=== PATIENT | female | born 1975 | race Caucasian/White ===

== ENCOUNTER 2017-10-24 03:53 | Emergency (ER) | payer MEDICAID, OTHER ==
[~2017-10-24] VITALS: Ht 152.4 cm; Wt 73.7 kg
[2017-10-24 04:07] VITALS: BP 106/69; PULSE 89; RESP 16; TEMP 97.9
[2017-10-24 04:08] VITALS: Ht 152.4 cm; Wt 73.7 kg
[2017-10-24 05:52] LABS: URINE BLOOD (Dip) POC 3+ (NEGATIVE)
[2017-10-24] MEDS: ACETAMINOPHEN 325 MG TAB PO STA ×2 (06:33→06:35)
[2017-10-24 06:58] LABS: BASOPHIL # 0.1 10^3/ul (0.0-0.1); BASOPHILS % 0.5 % (0.0-2.0); EOSINOPHILS # 0.1 10^3/ul (0.0-0.5); EOSINOPHILS % 1.4 % (0.0-7.0); HEMATOCRIT 35.1 % (37.0-47.0); HEMOGLOBIN 11.8 g/dl (12.0-16.0); LYMPHOCYTES # 1.7 10^3/ul (0.8-2.9); LYMPHOCYTES % 16.7 % (15.0-51.0); MEAN CORPUSCULAR HEMOGLOBIN 28.7 pg (29.0-33.0); MEAN CORPUSCULAR HGB CONC 33.6 g/dl (32.0-37.0); MEAN CORPUSCULAR VOLUME 85.4 fl (82.0-101.0); MEAN PLATELET VOLUME 9.9 fl (7.4-10.4); MONOCYTE # 0.7 10^3/ul (0.3-0.9); NEUTROPHIL # 7.7 10^3/ul (1.6-7.5); NEUTROPHILS % 74.1 % (39.0-77.0); PLATELET COUNT 260 10^3/UL (140-415); RED BLOOD COUNT 4.11 10^6/ul (4.20-5.40); RED CELL DISTRIBUTION WIDTH 13.2 % (11.5-14.5); WHITE BLOOD COUNT 10.3 10^3/ul (4.8-10.8)
[2017-10-24 07:09] LABS: ADD UMIC YES; UR ASCORBIC ACID NEGATIVE (NEGATIVE); UR BILIRUBIN (Dip) NEGATIVE (NEGATIVE); UR BLOOD (Dip) 3+ mg/dL (NEGATIVE); UR CLARITY CLOUDY (CLEAR); UR COLOR RED (YELLOW); UR GLUCOSE (Dip) 3+ mg/dL (NEGATIVE); UR KETONES (Dip) 1+ mg/dL (NEGATIVE); UR LEUKOCYTE ESTERASE (Dip) NEGATIVE Leu/ul (NEGATIVE); UR NITRITE (Dip) NEGATIVE (NEGATIVE); UR RBC > 182 /HPF (0-5); UR SPECIFIC GRAVITY (Dip) 1.033 (1.003-1.030); UR TOTAL PROTEIN (Dip) 2+ mg/dl (NEGATIVE); UR UROBILINOGEN (Dip) NEGATIVE (NEGATIVE)
--- NOTE | 2017-10-24 07:34 | RADRPT ---
PROCEDURE: US OB. CLINICAL INDICATION: Vaginal bleeding in . TECHNIQUE: Transabdominal and endovaginal imaging of the gravid uterus is available for review COMPARISON: None available FINDINGS: There is a single intrauterine with a crown-rump length of 1.3 cm, giving an estimated ges tational age of 7 weeks 4 days by ultrasound criteria. No heart tones are detected. The gesta tional sac is located within the endocervical canal. No subchorionic hemorrhage is identified. The ovaries are unremarkable. IMPRESSION: There is a gestational sac within the endocervical canal with an estimated gestational age of 7 week s 4 days by ultrasound criteria. No heart tones are detected. Findings are compatible with e carmela failed , likely in progress. RPTAT: HH .Phoebe Baird MD, Date Time Electronically viewed and signed by .Phoebe Baird MD, on 10/24/2017 07:33 .G/
[2017-10-24] MEDS ORDERED: ACET500C5 PO (09:21)
--- NOTE | 2017-10-24 17:22 | ERD ---
ER Documentation Chief Complaint Chief Complaint 8 Wk w/ Vaginal Bleeding since Sunday.Worse tonite HPI 42-year-old female who is approximately 8 weeks is complaining of vaginal bleeding and pelvic pain 4 days. Patient stated that the bleeding and pain had become much worse last night. Her LMP was 08/26/2017. Patient is . She was noted to have positive urine last week at her clinic. She went to [facility] ER yesterday for the same complaints. She was told to come to [facility] if her symptom worsens. Patient reports having changing her pads 4 times in the last 2 hours. Denies fever or chills. Denies abdominal pain, vomiting, or diarrhea. Denies shortness of breath. ROS All systems reviewed and are negative except as per history of present illness. Medications Home Meds Active Scripts Acetaminophen* (Tylophen*) 500 Mg Capsule, 1 CAP PO Q6H Y for PAIN AND OR ELEVATED TEMP, #20 CAP Prov:TAMANNA ENNIS MACHINE ATTENDANT 10/24/17 Allergies Allergies: Coded Allergies: No Known Allergy (Unverified , 10/24/17) PMhx/Soc History of Surgery: Yes (C-sectionX2) Anesthesia Reaction: No Hx Neurological Disorder: No Hx Respiratory Disorders: No Hx Cardiac Disorders: No Hx Psychiatric Problems: No Hx Miscellaneous Medical Probl: Yes (DM) Hx Alcohol Use: No Hx Substance Use: No Hx Tobacco Use: No Smoking Status: Never smoker Physical Exam Vitals Vital Signs Date Time Temp Pulse Resp B/P Pulse Ox O2 Delivery O2 Flow Rate FiO2 10/24/17 04:08 97.9 89 16 106/69 98 10/24/17 04:07 97.9 89 16 106/69 98 Room Air Physical Exam General: Well-developed, well-nourished, conscious and coherent, in no distress Skin: Warm and dry without rash, good texture and turgor Head: Normocephalic without evidence of trauma Eyes: Sclera and conjunctivae normal; pupils equal, round, and reactive to light; extraocular movements are intact Chest: Normal AP diameter. Good expansion without retractions. Nontender. Lungs are clear to auscultate bilaterally with good tidal volume Heart: Regular rate and rhythm. No murmur, rub, or gallops heard Abdomen: Soft and nontender without masses, guarding, or rebound. Bowel sounds are active. No hepatosplenomegaly Back: Without spinal or CVA tenderness Pelvis: Pelvic tenderness Extremities: Full range of motion. Good strength bilaterally. No clubbing, cyanosis, or edema. Peripheral pulses are intact. Sensation intact Neuro: Alert and oriented 4, GCS 15. Cranial nerves grossly intact. Motor and sensory exams nonfocal. Moves all extremities. Speech clear. Gait normal Result Diagram: 10/24/17 0635 Results 24 hrs Laboratory Tests Test 10/24/17 05:45 10/24/17 05:53 10/24/17 06:35 Urine Color RED Urine Clarity CLOUDY Urine pH 6.0 Urine Specific [place] 1.033 Urine Ketones 1+mg/dL Urine Nitrite NEGATIVEmg/dL Urine Bilirubin NEGATIVEmg/dL Urine Urobilinogen NEGATIVEmg/dL Urine Leukocyte Esterase NEGATIVELeu/ul Urine Microscopic RBC > 182/HPF Urine Microscopic WBC 0/HPF Urine Hemoglobin 3+mg/dL Urine Glucose 3+mg/dL Urine Total Protein 2+mg/dl Bedside Urine pH (LAB) 6.0 Bedside Urine Protein (LAB) 2+ Bedside Urine Glucose (UA) 0.50% Bedside Urine Ketones (LAB) 1+ Bedside Urine Blood 3+ Bedside Urine Nitrite (LAB) Negative Bedside Urine Leukocyte Esterase (L Negative White Blood Count 10.310^3/ul Red Blood Count 4.1110^6/ul Hemoglobin 11.8g/dl Hematocrit 35.1% Mean Corpuscular Volume 85.4fl Mean Corpuscular Hemoglobin 28.7pg Mean Corpuscular Hemoglobin Concent 33.6g/dl Red Cell Distribution Width 13.2% Platelet Count 80331^3/UL Mean Platelet Volume 9.9fl Neutrophils % 74.1% Lymphocytes % 16.7% Monocytes % 7.0% Eosinophils % 1.4% Basophils % 0.5% Nucleated Red Blood Cells % 0.0/100WBC Neutrophils # 7.710^3/ul Lymphocytes # 1.710^3/ul Monocytes # 0.710^3/ul Eosinophils # 0.110^3/ul Basophils # 0.110^3/ul Nucleated Red Blood Cells # 0.010^3/ul Beta HCG, Quantitative 7870.7mIU/ml Current Medications Medications (Trade) Dose Ordered Sig/Van Route PRN Reason Start Time Stop Time Status Last Admin Dose Admin Acetaminophen (Tylenol Tab) 650 mg ONCE STAT PO 10/24/17 06:23 10/24/17 06:25 DC 10/24/17 06:35 PROCEDURE: US OB. CLINICAL INDICATION: Vaginal bleeding in . TECHNIQUE: Transabdominal and endovaginal imaging of the gravid uterus is available for review COMPARISON: None available FINDINGS: There is a single intrauterine with a crown-rump length of 1.3 cm, giving an estimated gestational age of 7 weeks 4 days by ultrasound criteria. No heart tones are detected. The gestational sac is located within the endocervical canal. No subchorionic hemorrhage is identified. The ovaries are unremarkable. IMPRESSION: There is a gestational sac within the endocervical canal with an estimated gestational age of 7 weeks 4 days by ultrasound criteria. No heart tones are detected. Findings are compatible with early failed , likely in progress. RPTAT: HH .Phoebe Baird MD, MD Date Time Electronically viewed and signed by .Phoebe Baird MD, MD on 10/24/2017 07 :33 .G/ CC: TAMANNA ENNIS MACHINE ATTENDANT Procedures/MDM ED course: CBC: Unremarkable. Beta hC.7 UA: Negative leukocyte, negative nitrite, 3+ blood, positive glucose. Blood type: O+. RhoGAM is not indicated for patient. OB ultrasound: There is a gestational sac within the endocervical canal with a estimated gestational age of 7 weeks 4 days by ultrasound criteria. No heart tone detected. Medical decision-making: Well-appearing 42-year-old female who is approximately 8 weeks presented to the ED with vaginal bleeding and pelvic pain. She was seen at [facility] ED yesterday for the same. Her beta hCG quant today is approximately half of that from yesterday. Ultrasound yesterday showed a intrauterine without heart tone. Today, her gestational sac is descended into her endocervical canal. Perform pelvic exam, and noted tissue in her cervix. The tissue was removed. Cervix is closed after the tissue removal, patient is no longer actively bleeding. Patient appears to have active spontaneous , likely complete. I doubt ectopic . Medications on discharge: Tylenol. Follow-up: Primary care provider in 2 days or return to ED if worse. Departure Diagnosis: Primary Impression: Miscarriage Condition: Stable Patient Instructions: Miscarriage (Incomplete) [facility] Usted se nelson hecho un examen mdico de control que le indica que no est en fransisco condicin que requiera tratamiento urgente en el Departamento de Emergencia. Un estudio ms profundo y el tratamiento de conrad condicin pueden esperar sin ningn riesgo hasta que usted sea atendida/o en el consultorio de conrad mdico o fransisco cl reece. Es responsabilidad suya arreglar fransisco eli para el seguimiento del apolinar. MANEJO DE CONDICIONES NO URGENTES EN EL FUTURO 1) Si usted tiene un mdico de atencin primaria: Usted debera llamar a conrad mdico de atencin primaria antes de venir al departamento de emergencia. Despus de las horas de consultorio, conrad doctor o conrad asociado/a est disponible por telfono. El mdico o enfermero de adry en el servicio telefnico puede asesorarle por susu medio para atender el problema, o apolinar contrario se puede programar fransisco eli. 2) Si usted no tiene un mdico de atencin primaria: Llame al mdico o clnica de referencia que aparece abajo melissa las horas de consultorio para hacer fransisco eli para que le vean. CLINICAS: [facility] [phone] [facility] [phone] [facility] [phone] [facility] [phone] [place] [phone] [facility] [phone] [address] Additional Instructions: Llame al doctor MAANA y rod fransisco ELI PARA DENTRO DE 2-3 ALBERTS.Dgale a la secretaria que nosotros le instruimos hacer esta eli.Avise o llame si conrad condicin se empeora antes de la eli. Regresa aqui si peor o no mejor. TAMANNA ENNIS. LEA Oct 24, 2017 17:22
== END 2017-10-24 09:46 | disposition home or self-care (01) ==
LOC: FTE 03:53
DX: O03.9 Complete or unspecified spontaneous abortion without complication (principal); O24.111 Pre-existing type 2 diabetes mellitus, in pregnancy, first trimester; R10.2 Pelvic and perineal pain
CPT/HCPCS: 76801; 76817; 81001; 84702; 85025; 86900; 86901; Z7610; 36415; 81003